=== PATIENT | female | born 1990 | race African-American/Black ===

== ENCOUNTER 2017-09-09 14:06 | Outpatient (CLI) | payer OTHER ==
--- NOTE | 2017-09-09 16:06 | ULT ---
PELVIC/OB ULTRASOUND: 09/09/17 HISTORY: Evaluate size and dates. COMPARISON: None. TECHNIQUE: Transabdominal and endovaginal imaging of the pelvis is performed. ovaries are interrogated with santillan scale, color flow doppler imaging with spectral waveform analysis. FINDINGS: the uterus is identified measuring 5.1 x 6.5 x 9.8 cm. Within the endometrium, there is a gestational sac, yolk sac and pole. There appears to be a subchorionic hemorrhage measuring 1.2 x 0.6 cm. [place]-rump length is 0.94 cm which corresponds to gestational age of 7 weeks, 0 days. There are heart tones with a rate of 130 beats per minute. Lower uterine segment is unremarkable. The right ovary has a normal echotexture measuring 3.7 x 1.7 x 2.8 cm. Left ovary has a normal echote xture measuring 1.5 x 2.1 x 2.8 cm. IMPRESSION: 1. Single intrauterine gestation with heart tones. Average age by crown-rump length is 7 w eeks, 0 days. 2. Small subchorionic hemorrhage is noted. POS: [facility]
== END 2017-09-09 14:07 | disposition home or self-care (01) ==
LOC: SCSULT 14:06
PROVIDERS: ATTEND Family Medicine
DX: Z32.00 Encounter for pregnancy test, result unknown (principal); Z3A.01 Less than 8 weeks gestation of pregnancy; O20.8 Other hemorrhage in early pregnancy
CPT/HCPCS: 76856

== ENCOUNTER 2017-10-06 13:05 | Outpatient (CLI) | payer OTHER ==
--- NOTE | 2017-10-06 14:00 | ULT ---
ULTRASOUND PELVIC ULTRASOUND TRANSVAGINAL DOPPLER DUPLEX: Date: 10/06/17 Time: 1332 hours HISTORY: 26-year-old female in first trimester of with threatened . TECHNIQUE: Transabdominal transducer used to evaluate intrapelvic contents using the urinary bladder as an acous tic window. Endovaginal transducer used to visualize intrapelvic contents in greater detail. Color fl ow Doppler and Pulsed Doppler spectral waveform analysis of ovaries. FINDINGS: There is an intrauterine gestational sac containing an embryonic pole, with crown-rump length of 1.5 cm, corresponding to 7 weeks, 6 day gestational age. There is no heart activity. There is no haro bchorionic hemorrhage. No free fluid in the cul-de-sac. Bilateral ovaries are normal in size and have blood flow demonstrated by Doppler. No corpus luteal cyst is visualized. IMPRESSION: First trimester intrauterine /embryonic demise: missed . MARIA TERESA Parnell POS: [facility]
== END 2017-10-06 13:06 | disposition home or self-care (01) ==
LOC: ULT 13:05
PROVIDERS: ATTEND Family Medicine
DX: O20.0 Threatened abortion (principal)
CPT/HCPCS: 76856

== ENCOUNTER 2017-10-13 13:24 | Emergency (ER) | payer OTHER ==
[2017-10-13] MEDS ORDERED: Morphine 4 MG/ML VIAL ONE (14:03)
[2017-10-13] MEDS ORDERED: Ondansetron ODT 4 MG TAB ONE (14:03)
== END 2017-10-13 14:43 | disposition home or self-care (01) ==
LOC: ERS 13:24
DX: R10.30 Lower abdominal pain, unspecified (principal); T47.1X5A Adverse effect of other antacids and anti-gastric-secretion drugs, initial encounter; O02.1 Missed abortion
CPT/HCPCS: 96372; J2270; Q0162

== ENCOUNTER 2019-02-25 01:48 | Emergency (ER) | payer OTHER ==
[2019-02-25] MEDS ORDERED: Ondansetron ODT 4 MG TAB ONE (02:05)
[2019-02-25 02:16] LABS: Bilirubin Negative (Negative); Blood, Urine Negative (Negative); Clarity Clear (Clear); Glucose, Urine (Dipstick) Normal (Negative); Leukocyte Negative Leu/uL (Negative); Nitrite Negative (Negative); Pregnancy Test - Urine (BHCG) Negative (Negative); Pregu Control Background? CLEAR/WHITE (CLR/WHITE); Pregu Control Bar Appear? YES (CONTROL BAR); Protein, Urine (Dipstick) 20 mg/dL (Neg-Trace); Urobilinogen Normal mg/dL (Less than 2)
[2019-02-25 02:17] LABS: Specific Gravity 1.031 (1.002-1.036)
[2019-02-25 02:17] LABS: #Lymphocytes 1.4 thou/uL (1.20-3.40); #Monocytes 0.3 thou/uL (0.11-0.59); #Neutrophils 7.8 thou/uL (1.40-6.50); %Basophils 0.1 % (0.0-1.0); %Eosinophils 0.2 % (0.0-10.0); %Monocytes 3.4 % (0.0-10.0); %Neutrophils 81.3 % (42.0-75.0); Mean Corpuscular HGB CONC 34.4 g/dL (32.0-36.0); Mean Corpuscular Hemoglobin 32.5 pg (27.0-31.0); Mean Corpuscular Volume 94.5 fL (78.0-98.0); Mean Platelet Volume 7.3 fL (7.4-10.4); Platelet Count 287 thou/uL (130-400); RBC Distribution Width 11.5 % (11.5-14.5); White Blood Cell (WBC) Count 9.6 thou/uL (4.8-10.8)
[2019-02-25 02:41] LABS: ALT (SGPT) 24 U/L (8-55); AST (SGOT) 25 U/L (5-34); Alkaline Phosphatase 63 U/L (40-150); Anion Gap 15 mmol/L (10-20); BUN (Urea Nitrogen) 8 mg/dL (7.0-18.7); Bilirubin, Total 0.3 mg/dL (0.2-1.2); Calc. Creatinine Clearance 0 mL/min (70-130); Calcium 9.2 mg/dL (7.8-10.44); Carbon Dioxide 21 mmol/L (22-29); Chloride 105 mmol/L (98-107); Estimated GFR-MDRD Greater than 90; Globulin 3.9 g/dL (2.4-3.5); Glucose 106 mg/dL (70-105); Lipase 10 U/L (8-78); Potassium 3.9 mmol/L (3.5-5.1); Protein, Total 7.9 g/dL (6.0-8.3); Sodium 137 mmol/L (136-145)
== END 2019-02-25 04:15 | disposition home or self-care (01) ==
LOC: ERS 01:48
DX: R11.2 Nausea with vomiting, unspecified (principal)
CPT/HCPCS: 36415; 80053; 81003; 81025; 83690; 85025; 99284; Q0162

== ENCOUNTER 2019-03-03 16:31 | Inpatient (IN) | payer OTHER ==
[2019-03-03 17:08] LABS: #Eosinphils 0.2 thou/uL (0.0-0.7); #Lymphocytes 2.6 thou/uL (1.20-3.40); #Monocytes 0.8 thou/uL (0.11-0.59); #Neutrophils 7.6 thou/uL (1.40-6.50); %Basophils 0.3 % (0.0-1.0); %Eosinophils 1.6 % (0.0-10.0); %Lymphocytes 23.1 % (21.0-51.0); %Monocytes 7.3 % (0.0-10.0); %Neutrophils 67.7 % (42.0-75.0); Hemoglobin 13.7 g/dL (12.0-16.0); Mean Corpuscular HGB CONC 34.4 g/dL (32.0-36.0); Mean Corpuscular Hemoglobin 32.2 pg (27.0-31.0); Mean Corpuscular Volume 93.6 fL (78.0-98.0); Platelet Count 341 thou/uL (130-400); Red Blood Cell (RBC) Count 4.26 mill/uL (4.20-5.40); White Blood Cell (WBC) Count 11.2 thou/uL (4.8-10.8)
[2019-03-03 17:34] LABS: ALT (SGPT) 24 U/L (8-55); AST (SGOT) 19 U/L (5-34); Alkaline Phosphatase 65 U/L (40-110); Anion Gap 10 mmol/L (10-20); BUN (Urea Nitrogen) 4 mg/dL (7.0-18.7); Bilirubin, Total 0.7 mg/dL (0.2-1.2); Calc. Creatinine Clearance 0 mL/min (70-130); Calcium 9.3 mg/dL (7.8-10.44); Carbon Dioxide 25 mmol/L (22-29); Chloride 104 mmol/L (98-107); Estimated GFR-MDRD 88; Glucose 89 mg/dL (70-105); Lipase 18 U/L (8-78); Potassium 3.7 mmol/L (3.5-5.1); Sodium 135 mmol/L (136-145)
--- NOTE | 2019-03-03 18:26 | ULT ---
EXAM: RIGHT UPPER QUADRANT ULTRASOUND: 03/03/19 HISTORY: Pain, nausea, and vomiting times one week. COMPARISON: None. TECHNIQUE: Utilizing a multihertz transducer, sonographic imaging of the right upper quadrant is performed in th e longitudinal and transverse plane. FINDINGS: The head of the pancreas has a normal echotexture. The remainder of the pancreas is obscured by bowel gas. Hepatic parenchyma has a normal echotexture. No hepatic masses or intrahepatic biliary dilatation. Co ntour of the hepatic margin is maintained. Right hepatic lobe measures 15.5 cm. Gallbladder wall is thickened measuring 0.7 cm. Multiple echogenic foci compatible with gallstones. N o pericholecystic fluid. Negative Grullon's sign. Portal vein is patent. Appropriate directional flow. Right kidney has a normal cortical echotexture. No hydronephrosis. Right kidney measures 4.4 x 5.2 x 9.5 cm. Common bile duct diameter is 0.54 cm. IMPRESSION: Sonographic evidence of cholelithiasis with findings that are equivocal for cholecystitis. Gallbladde r wall thickened. However, learning solutions specialist does not report a positive Grullon's sign. Further evaluation w ith HIDA scan may be beneficial. POS: [facility]
[2019-03-03 18:38] LABS: Bilirubin Negative (Negative); Blood, Urine Negative (Negative); Clarity Clear (Clear); Glucose, Urine (Dipstick) Normal (Negative); Leukocyte Negative Leu/uL (Negative); Nitrite Negative (Negative); Protein, Urine (Dipstick) Negative (Neg-Trace); Urobilinogen Normal mg/dL (Less than 2)
[2019-03-03 18:39] LABS: Pregnancy Test - Urine (BHCG) Negative (Negative); Pregu Control Background? CLEAR/WHITE (CLR/WHITE); Pregu Control Bar Appear? YES (CONTROL BAR); Specific Gravity 1.018 (1.002-1.036)
[2019-03-03] MEDS ORDERED: Ondansetron PF 4 MG/2 ML Vial ONE (19:04)
[2019-03-03] MEDS ORDERED: Morphine 4 MG/ML VIAL ONE (19:04)
[2019-03-03] MEDS ORDERED: cefOXitin 2 GM in Sodium Chloride 0.9% 100 ML IVPB ONE (19:45)
[2019-03-03] MEDS: Dextrose 5 % And 0.9 % NaCl 1,000 ML IV SCH (23:58)
[2019-03-04] MEDS: Morphine 2 MG/ML SYRINGE SLOW IVP PRN ×2 (00:07→07:53)
[2019-03-04] MEDS ORDERED: cefOXitin 2 GM in Sodium Chloride 0.9% 100 ML IVPB SCH (07:45)
[2019-03-04] MEDS: Dextrose 5 % And 0.9 % NaCl 1,000 ML IV SCH (08:13)
--- NOTE | 2019-03-04 08:57 | HP ---
CHIEF COMPLAINT: Epigastric abdominal pain. HISTORY OF PRESENT ILLNESS: This is a 28-year-old female with a 1-week history of epigastric pain radiating to the right side and back, associated with nausea, vomiting, and subjective fever. Ultrasound shows thickened gallbladder wall with multiple cholelithiasis. PAST MEDICAL HISTORY: Obesity. PAST SURGERIES: None. MEDICATIONS: Oral contraceptives. ALLERGIES: NO KNOWN DRUG ALLERGIES. SOCIAL HISTORY: She is single. She works as a dispatcher. No tobacco. Social alcohol. FAMILY HISTORY: Noncontributory. PHYSICAL EXAMINATION: VITAL SIGNS: Temperature 98.4, pulse 92, blood pressure 102/59. GENERAL: She is an obese female, lying still, in no apparent distress. HEENT: No jaundice. LUNGS: Clear. HEART: Regular rate and rhythm. ABDOMEN: Obese. Soft. She is tender in the right upper quadrant with a positive Grullon sign. EXTREMITIES: Unremarkable. LABORATORY DATA: Her white count is 11.2, H and H are 13 and 39, platelet count 341. Electrolytes are fine. LFTs are normal. Ultrasound again shows thickened gallbladder wall, multiple cholelithiasis, normal common bile duct. ASSESSMENT: Acute cholecystitis. PLAN: Laparoscopic cholecystectomy. CONSENT: I have discussed planned procedure as well as risk of bleeding, infection, injury to bile duct, injury to bowel, need to open. She understands and gives informed consent. Job ID: [id number]
[2019-03-04] MEDS ORDERED: Bupivacaine/Epinephrine 0.25% 30 ML VIAL ONE (09:35)
[2019-03-04] MEDS ORDERED: Fentanyl 100 MCG/2 ML VIAL ONE ×3 (09:39→11:31)
[2019-03-04] MEDS ORDERED: hydrALAZINE 20 MG/ML VIAL SLOW IVP PRN (11:00)
[2019-03-04] MEDS ORDERED: Promethazine HCl 25 MG/ML VIAL IM PRN (11:00)
[2019-03-04] MEDS ORDERED: Ondansetron PF 4 MG/2 ML Vial IVP PRN (11:00)
[2019-03-04] MEDS ORDERED: Dextrose 5% in Water 1,000 ML IV PRN (11:00)
[2019-03-04] MEDS ORDERED: Mag-Al 1200 mg/1200 mg/30 ML UDCUP PO PRN (11:00)
[2019-03-04] MEDS ORDERED: Calcium Carbonate 500 MG ChewTAB PO PRN (11:00)
[2019-03-04] MEDS ORDERED: Dextrose 50% Abboject 50 ML SYRINGE SLOW IVP PRN (11:00)
[2019-03-04] MEDS ORDERED: HYDROcodone/Acetaminophen 10/325 mg Tablet PO PRN ×2 (11:00)
[2019-03-04] MEDS ORDERED: Morphine 2 MG/ML SYRINGE SLOW IVP PRN (11:12)
[2019-03-04] MEDS ORDERED: Promethazine HCl 25 MG/ML VIAL IM/IV PRN (11:33)
[2019-03-04] MEDS ORDERED: Non-Formulary Medication 1 EACH PO PRN (11:33)
[2019-03-04] MEDS ORDERED: Ondansetron HCl/PF 4 MG/2 ML Vial IVP PRN (11:33)
[2019-03-04] MEDS: Lactated Ringer's 1,000 ML IV SCH ×2 (12:51→19:16)
[2019-03-04] MEDS: Ketorolac Tromethamine 30 MG/ML VIAL IVP SCH ×2 (12:51→16:44)
[2019-03-04] MEDS: Piperacillin/Tazobactam 3.375 GM in Sodium Chloride 0.9% 100 ML IVPB SCH ×2 (12:56→19:13)
--- NOTE | 2019-03-04 14:05 | OP ---
DATE OF PROCEDURE: 03/04/2019 PREOPERATIVE DIAGNOSIS: Acute cholecystitis. PROCEDURE PERFORMED: Laparoscopic cholecystectomy. INDICATIONS: This is a 28-year-old female who presents with a 1-week history of right upper quadrant pain, worse with eating, associated with nausea and vomiting, radiating to the back, came to the emergency room. Ultrasound showed thickened gallbladder wall, leukocytosis, and gallstones. Normal liver functions. FINDINGS: Distended, inflamed, thickened gallbladder, small caliber cystic duct. DESCRIPTION OF PROCEDURE: After informed consent was obtained, the patient was taken to the operating room, given general endotracheal anesthesia, placed in the supine position. Abdomen was prepped and draped in the usual fashion. Local anesthesia infiltrated subcutaneously and deep. A subumbilical incision was performed. Subcu divided sharply. The fascia grasped and 2 stay sutures of 0 Vicryl placed in each side of midline. Midline incised. Digital palpation revealed no local adhesions. A blunt 12-mm trocar inserted. Pneumoperitoneum was created to a pressure of 15 mmHg. A 0-degree laparoscope inserted under direct vision. Three 5-mm ports were placed subcostally. Gallbladder was very distended, encased in omentum. The omentum was reflected back to expose the very inflamed distended gallbladder. This was punctured with an aspirating needle and 50 mL of thick dark bile removed. This was sent for culture. The gallbladder was grasped and advanced superiorly. The peritoneum was dissected distally to expose the cystic duct artery in critical view. The duct and artery were triply ligated with hemoclips and divided. The gallbladder removed from its fossa utilizing electrocautery. It was placed in an endosac, removed from the abdomen in the endosac, sent to Pathology for further analysis. Hemostasis achieved with electrocautery. A drain was placed and brought out through the lateral-most incision, placed in the subhepatic space. Hemostasis was assured. Trocars and retractors removed. The fascia closed with interrupted 0 Vicryl suture. The skin closed with interrupted 4-0 Rapide. Dermabond applied. The patient tolerated the procedure well, transferred to Recovery in good condition. Sponge and needle count verified correct x2. Job ID: [id number]
[2019-03-04] MEDS ORDERED: Sodium Chloride 0.9% 10 ML ONE (16:41)
[2019-03-04] MEDS: Morphine 4 MG/ML VIAL SLOW IVP PRN ×2 (16:45→19:06)
[2019-03-05] MEDS: Famotidine/PF 20 mg/2ml Vial SLOW IVP SCH ×2 (00:26→09:18)
[2019-03-05] MEDS: Ketorolac Tromethamine 30 MG/ML VIAL IVP SCH ×2 (00:27→05:43)
[2019-03-05] MEDS: Piperacillin/Tazobactam 3.375 GM in Sodium Chloride 0.9% 100 ML IVPB SCH ×2 (00:27→05:43)
[2019-03-05] MEDS: Famotidine 20 MG TAB PO SCH ×2 (01:00→08:59)
[2019-03-05 05:36] LABS: #Lymphocytes 2.3 thou/uL (1.20-3.40); #Monocytes 0.9 thou/uL (0.11-0.59); %Basophils 0.1 % (0.0-1.0); %Eosinophils 0.4 % (0.0-10.0); %Lymphocytes 20.6 % (21.0-51.0); %Monocytes 8.1 % (0.0-10.0); %Neutrophils 70.9 % (42.0-75.0); Mean Corpuscular HGB CONC 34.3 g/dL (32.0-36.0); Mean Corpuscular Hemoglobin 32.2 pg (27.0-31.0); Mean Corpuscular Volume 93.9 fL (78.0-98.0); Mean Platelet Volume 6.9 fL (7.4-10.4); Platelet Count 281 thou/uL (130-400); RBC Distribution Width 10.9 % (11.5-14.5); Red Blood Cell (RBC) Count 3.72 mill/uL (4.20-5.40); White Blood Cell (WBC) Count 11.3 thou/uL (4.8-10.8)
[2019-03-05] MEDS: Lactated Ringer's 1,000 ML IV SCH (05:50)
[2019-03-05 06:01] LABS: ALT (SGPT) 41 U/L (8-55); AST (SGOT) 35 U/L (5-34); Albumin 3.1 g/dL (3.5-5.0); Alkaline Phosphatase 54 U/L (40-110); Anion Gap 9 mmol/L (10-20); BUN (Urea Nitrogen) 5 mg/dL (7.0-18.7); Bilirubin, Total 0.5 mg/dL (0.2-1.2); Calc. Creatinine Clearance 168 mL/min (70-130); Calcium 8.5 mg/dL (7.8-10.44); Carbon Dioxide 25 mmol/L (22-29); Chloride 104 mmol/L (98-107); Estimated GFR-MDRD Greater than 90; Globulin 3.3 g/dL (2.4-3.5); Glucose 89 mg/dL (70-105); Lipase 14 U/L (8-78); Potassium 3.9 mmol/L (3.5-5.1); Protein, Total 6.4 g/dL (6.0-8.3); Sodium 134 mmol/L (136-145)
[2019-03-05 07:40] VITALS: TEMP 98.1
--- NOTE | 2019-03-05 07:51 | PDOC.GSPN ---
Surgery Progress Note: Subj - Subjective Narrative: Ms. Edel Najera is a 28 yo AA female who is status post lap carina POD#1. This morning she is doing well. She reports that her current pain is well controlled with medication. Only complains of pain upon movement. However, she states that once the pain medication wears off, then her pain level rises to 6/ 10. She says she has gotten up to go to the bathroom to urinate. She has not had a bowel movement. Currently she is on a liquid diet. No dysphagia or abdominal pain. Incisions are healing nicely. She has developed no fever or SOB. Surgery Progress Note: Obj - Vital signs Vital signs: Vital Signs - Most Recent Temp Pulse Resp BP Pulse Ox 98.1 F 71 16 105/50 L 93 L 03/05/19 05:41 03/05/19 05:41 03/05/19 05:41 03/05/19 05:41 03/04/19 20:00 - Physical Exam General: no distress, obese Cardiovascular: regular rate and rhythm Respiratory: clear to auscultation, normal expansion, normal respiratory effort , breath sounds present Abdomen: soft, non tender, nondistended Integumentary: no abnormal pigmentation Psychiatric: memory intact, oriented to time, oriented to person, oriented to place, speech is normal Wound: dressing clean,dry,intact, healing well, drainage (ORACIO output - 110 ml) Surgery Progress Note: Results - Labs Result Diagrams: 03/05/19 05:25 03/05/19 05:25 Surgery Progress Note: A/P - Problem (1) Status post laparoscopic cholecystectomy Current Visit: Yes Code(s): Z90.49 - ACQUIRED ABSENCE OF OTHER SPECIFIED PARTS OF DIGESTIVE TRACT Status: Acute - Plan Plan: Plan will be to continue supportive care. Re-evaluate pain control. Continue liquid diet. Advance diet as tolerated. Continue DVT prophylaxis. Encourage ambulation.
[2019-03-05 08:05] VITALS: BP 110/59
[2019-03-05] MEDS ORDERED: Enoxaparin Sodium 40 MG/0.4 ML SYRINGE SC SCH (09:00)
--- NOTE | 2019-03-05 16:39 | DIS ---
DATE OF ADMISSION: 03/03/2019 DATE OF DISCHARGE: 03/05/2019 DISCHARGE DIAGNOSIS: Acute cholecystitis. PROCEDURE DURING ADMISSION: Laparoscopic cholecystectomy. HOSPITAL COURSE: The patient was admitted, taken to the operating room after being given IV antibiotics. She was found to have an acute cholecystitis. She underwent a laparoscopic cholecystectomy. Postoperatively, she has done well. She is tolerating liquids well. Pain is controlled on p.o. medications. She is discharged home on hydrocodone and Zofran. Follow up with me in 2 weeks. Job ID: [id number]
== END 2019-03-05 11:45 | disposition home or self-care (01) | DRG 419 ==
LOC: ERS 16:31 → 3SE 18:47
PROVIDERS: ADMIT Surgery; ATTEND Surgery
PROC: 0FT44ZZ Resection of Gallbladder, Percutaneous Endoscopic Approach (ICD-10-PCS; principal; 2019-03-04)
DX: K80.00 Calculus of gallbladder with acute cholecystitis without obstruction (principal); D72.829 Elevated white blood cell count, unspecified
CPT/HCPCS: 36415; 76705; 80053; 81003; 81025; 83690; 85025; 87070; 87205; 88304; 96361; 96374; 96375; J0694; J1885; J2270; J2405; J2543; J3010; J3490; S0028

== ENCOUNTER 2019-06-24 18:30 | Outpatient (CLI) | payer OTHER | END 2019-06-24 18:31 | disposition home or self-care (01) | LOC: SLEEPLAB 18:30 | PROVIDERS: ATTEND Family Medicine | DX: G47.33 Obstructive sleep apnea (adult) (pediatric) (principal); R53.83 Other fatigue; E66.9 Obesity, unspecified; R06.83 Snoring | CPT/HCPCS: 95806 ==

== ENCOUNTER 2019-08-11 20:30 | Outpatient (CLI) | payer OTHER | END 2019-08-11 20:31 | disposition home or self-care (01) | LOC: SLEEPLAB 20:30 | PROVIDERS: ATTEND Family Medicine | DX: G47.33 Obstructive sleep apnea (adult) (pediatric) (principal); R53.83 Other fatigue; E66.9 Obesity, unspecified; R06.83 Snoring; Z68.41 Body mass index [BMI] 40.0-44.9, adult | CPT/HCPCS: 95811 ==

== ENCOUNTER 2021-10-25 10:44 | Emergency (ER) | payer BC, OTHER ==
[2021-10-25 11:31] LABS: #Eosinphils 0.1 thou/uL (0.0-0.7); #Lymphocytes 2.2 thou/uL (1.20-3.40); #Monocytes 0.5 thou/uL (0.11-0.59); #Neutrophils 3.3 thou/uL (1.40-6.50); %Basophils 0.5 % (0.0-1.0); %Eosinophils 1.9 % (0.0-10.0); %Lymphocytes 35.6 % (21.0-51.0); %Monocytes 7.8 % (0.0-10.0); %Neutrophils 54.4 % (42.0-75.0); Hemoglobin 13.3 g/dL (12.0-16.0); Mean Corpuscular HGB CONC 33.1 g/dL (32.0-36.0); Mean Corpuscular Hemoglobin 32.1 pg (27.0-31.0); Mean Corpuscular Volume 96.8 fL (78.0-98.0); Mean Platelet Volume 7.1 fL (7.4-10.4); Platelet Count 266 thou/uL (130-400); RBC Distribution Width 11.2 % (11.5-14.5); Red Blood Cell (RBC) Count 4.15 mill/uL (4.20-5.40); White Blood Cell (WBC) Count 6.1 thou/uL (4.8-10.8)
[2021-10-25 11:38] LABS: BHCG - Serum Negative (NEGATIVE); Pregs Control Background? CLEAR/WHITE (CLR/WHITE); Pregs Control Bar Appear? YES (CONTROL BAR)
[2021-10-25 11:46] LABS: ALT (SGPT) 18 U/L (8-55); AST (SGOT) 19 U/L (5-34); Albumin 3.7 g/dL (3.5-5.0); Alkaline Phosphatase 65 U/L (40-110); Anion Gap 11 mmol/L (10-20); BUN (Urea Nitrogen) 7 mg/dL (7.0-18.7); Bilirubin, Total 0.7 mg/dL (0.2-1.2); Calc. Creatinine Clearance 0 mL/min (70-130); Calcium 8.7 mg/dL (7.8-10.44); Carbon Dioxide 25 mmol/L (22-29); Chloride 106 mmol/L (98-107); Globulin 3.7 g/dL (2.4-3.5); Glucose 91 mg/dL (70-105); Magnesium 1.8 mg/dL (1.6-2.6); Potassium 3.6 mmol/L (3.5-5.1); Protein, Total 7.4 g/dL (6.0-8.3); Sodium 138 mmol/L (136-145)
== END 2021-10-25 13:05 | disposition home or self-care (01) ==
LOC: ERS 10:44
DX: R42 Dizziness and giddiness (principal)
CPT/HCPCS: 36415; 80053; 83735; 84703; 85025; 93005

== ENCOUNTER 2023-10-20 08:35 | Outpatient (CLI) | payer OTHER ==
[2023-10-20] MEDS ORDERED: Iopamidol 30 ML ONE (09:06)
[2023-10-20 09:18] LABS: BHCG - Serum Negative (NEGATIVE); Pregs Control Background? CLEAR/WHITE (CLR/WHITE); Pregs Control Bar Appear? YES (CONTROL BAR)
== END 2023-10-20 08:36 | disposition home or self-care (01) ==
LOC: RAD 08:35
PROVIDERS: ATTEND Obstetrics & Gynecology
DX: N97.9 Female infertility, unspecified (principal); N83.8 Other noninflammatory disorders of ovary, fallopian tube and broad ligament
CPT/HCPCS: 58340; 74740; 84703; Q9967